=== PATIENT | male | born 1950 ===

== ENCOUNTER 2020-09-26 11:15 | Inpatient (IN) | payer OTHER ==
[~2020-09-26] VITALS: Ht 180.3 cm; Wt 98.9 kg
[~2020-09-26 11:15] MED LIST: ASA81 MG PO; ATENOLOL50 MG; ATENOLOL50 MG PO; GLIPIZIDE; LIPITOR40 MG PO; VYTORIN 10-20 M1 TAB; [UNRECOGNIZED DRUG - REMARK]
[2020-09-26] MEDS ORDERED: JANUMET XR 1001 EACH PO (14:15)
[2020-09-26] MEDS ORDERED: TOPROL XL50 M1 PO (14:16)
[2020-09-26] MEDS ORDERED: COZAAR50 MG PO (14:16)
[2020-09-26] MEDS ORDERED: [UNRECOGNIZED DRUG - OTHER] (14:16)
[2020-09-26] MEDS ORDERED: FENOFIBRATE50 MG PO (14:17)
[2020-10-02] MEDS ORDERED: GABAPENTIN400 MG (08:12)
[2020-10-02] MEDS ORDERED: IRON325 MG (08:12)
[2020-10-02] MEDS ORDERED: ATORVASTATIN CA20 MG (08:12)
[2020-10-02] MEDS ORDERED: SPIRONOLACTONE50 MG (08:12)
[2020-10-02] MEDS ORDERED: VITAMIN B-COMP1 EAC1 (08:13)
[2020-10-03] MEDS ORDERED: ELIQUIS2.5 MG PO (15:00)
[2020-10-03] MEDS ORDERED: PERCOCET 5-3251 EACH PO (15:00)
[2020-10-03] MEDS ORDERED: CEFADROXIL500 MG PO (15:00)
== END 2020-10-03 18:32 | disposition home or self-care (01) | DRG 470 ==
LOC: O/R 10-01 06:00 → SURH 10-01 06:00
PROVIDERS: ADMIT Orthopaedic Surgery; ATTEND Orthopaedic Surgery
PROC: 0MNN0ZZ Release Right Knee Bursa and Ligament, Open Approach (ICD-10-PCS; 2020-10-01)
PROC: 0SRC0JZ Replacement of Right Knee Joint with Synthetic Substitute, Open Approach (ICD-10-PCS; principal; 2020-10-01 12:30)
DX: M17.11 Unilateral primary osteoarthritis, right knee (principal); D62 Acute posthemorrhagic anemia; I10 Essential (primary) hypertension; E11.9 Type 2 diabetes mellitus without complications